=== PATIENT | female | born 1985 | race Caucasian/White ===

== ENCOUNTER 2018-06-13 05:09 | Emergency (ER) | payer MEDICAID ==
[~2018-06-13] VITALS: Ht 157.5 cm; Wt 73.0 kg
[2018-06-13 06:14] LABS: CLARITY URINE CLEAR (CLEAR); COLOR URINE YELLOW (YELLOW); KETONES URINE TRACE (NEGATIVE); LEUKOCYTE ESTERASE URINE TRACE (NEGATIVE); NITRITE URINE NEGATIVE (NEGATIVE); OCCULT BLOOD URINE NEGATIVE (NEGATIVE); PROTEIN URINE NEGATIVE (NEGATIVE); SPECIFIC GRAVITY URINE 1.004 (1.005-1.030)
[2018-06-13 06:38] LABS: *AMPHETAMINES SCREEN URINE NEGATIVE (NEGATIVE); *BARBITURATES SCREEN URINE NEGATIVE (NEGATIVE); *BENZODIAZEPINES SCREEN URINE NEGATIVE (NEGATIVE)
[2018-06-13 06:39] LABS: *COCAINE SCREEN URINE NEGATIVE (NEGATIVE); CANNABINOID URINE SCREEN NEGATIVE (NEGATIVE); METHADONE URINE SCREEN NEGATIVE (NEGATIVE); OPIATES URINE SCREEN NEGATIVE (NEGATIVE); PHENCYCLIDINE URINE SCREEN NEGATIVE (NEGATIVE)
[2018-06-13 07:15] VITALS: BP 121/69
== END 2018-06-13 07:15 | disposition home or self-care (01) ==
LOC: ER 05:09
DX: O99.341 Other mental disorders complicating pregnancy, first trimester (principal); F41.9 Anxiety disorder, unspecified; Z88.0 Allergy status to penicillin; Z3A.01 Less than 8 weeks gestation of pregnancy
CPT/HCPCS: 80305; 81025; 99283

== ENCOUNTER 2018-06-14 03:25 | Emergency (ER) | payer MEDICAID ==
[~2018-06-14] VITALS: Ht 152.4 cm; Wt 59.0 kg
[2018-06-14 05:37] VITALS: BP 120/84
== END 2018-06-14 04:40 | disposition left against medical advice (07) ==
LOC: ER 04:26
DX: Z53.21 Procedure and treatment not carried out due to patient leaving prior to being seen by health care provider (principal)